=== PATIENT | female | born 2000 | race Caucasian/White ===

== ENCOUNTER 2019-02-08 08:35 | Emergency (ER) | payer MEDICAID ==
[~2019-02-08] VITALS: Ht 165.1 cm; Wt 81.8 kg
[2019-02-08] MEDS ORDERED: AMPI500C68 PO ×2 (08:52→08:54)
[2019-02-08] MEDS ORDERED: IBUP-2070 PO (08:54)
[2019-02-08] MEDS ORDERED: LIDOCAINE/PF 1% 2 ML VIAL IM ONE (09:15)
[2019-02-08] MEDS ORDERED: CefTRIAXone SODIUM 1 GM/VIAL IM ONE (09:15)
[2019-02-08 09:50] VITALS: BP 144/87
== END 2019-02-08 10:15 | disposition home or self-care (01) ==
LOC: EMS 08:39
DX: L02.01 Cutaneous abscess of face (principal); Z88.6 Allergy status to analgesic agent
CPT/HCPCS: 96372; 99283; J0696; J3490; 10060